=== PATIENT | female | born 1980 | race American Indian/Alaskan Native ===

== ENCOUNTER 2017-08-05 18:07 | Emergency (ER) | payer OTHER ==
[2017-08-05 18:14] VITALS: BP 94/69; PULSE 80; TEMP 98.5; BMI 22.1
--- NOTE | 2017-08-05 18:17 | PDOC ---
Rapid Medical Evaluation Chief Complaint: Vaginal Bleeding Time Seen by Provider: 08/05/17 18:14 Medical Evaluation: Allergies Allergy/AdvReac Type Severity Reaction Status Date / Time No Known Allergies Allergy Verified 04/29/16 03:59 Vital Signs Temp Pulse Resp BP Pulse Ox 98.5 F 80 20 94/69 100 08/05/17 18:12 08/05/17 18:12 08/05/17 18:12 08/05/17 18:12 08/05/17 18:12 08/05/17 18:14 I have performed a brief in-person evaluation of this patient. The patient presents with a chief complaint of: 8 weeks w/ vaginal bleeding today. No clots or abd pain. +IUP w/ FHR on US last week. Beta 106,420 on 07/28. NET DEVELOPER ARCHITECT is Dr Woodard Pertinent physical exam findings:Stable I have ordered the following:labs/US The patient will proceed to the ED for further evaluation. 08/05/17 18:19 Discharge Disposition - Diagnosis First trimester bleeding - Referrals - Patient Instructions - Post Discharge Activity
--- NOTE | 2017-08-05 18:28 | PDOC ---
History of Present Illness - General History Source: Patient Exam Limitations: No Limitations - History of Present Illness Initial Comments: 08/05/17 18:49 The patient is a 36 year old female presenting with her family who is currently 8 weeks , A0, with a significant past medical history of gestational diabetes and hyperthyroidism, who presents to the emergency department complaining of vaginal bleeding, chills and lower back pain. She reports that she started spotting 1 week ago which has subsided. The bleeding began again today, prompting her to come to the ED. She notes that her lower back pain has been consistent with her . She denies any kind of vaginal discharge other than the bleeding. She notes that she recently had an US and her ROLLER PNEUMATIC and everything was withing normal limits, as per patient. The patient denies chest pain, shortness of breath, headache or dizziness. Denies fever, chills, nausea, vomiting, diarrhea and constipation. Denies dysuria, frequency, urgency and hematuria. LMP: 06/12/2017 Allergies: None Past surgical history: None reported Social History: No alcohol, tobacco or drug use reported ROLLER PNEUMATIC: Dr. Woodard <Jorge A Deleon - Last Filed: 08/05/17 20:44> <Jesse Eaton - Last Filed: 08/05/17 20:59> - General Chief Complaint: Vaginal Bleeding Stated Complaint: VAGINAL BLEEDING (8 WKS ) Time Seen by Provider: 08/05/17 18:14 Past History <Jorge A Deleon - Last Filed: 08/05/17 20:44> - Past Medical History Asthma: No Cancer: No Cardiac Disorders: No Diabetes: No HTN: No Seizures: No Thyroid Disease: No - Reproductive History (#): 1 Para: 0 Cervical CA: No Dysfunctional Uterine Bleeding: No Ectopic : No Endometrial CA: No Polycystic Ovaries: No Therapeutic (s) & number: No Spontaneous : 0 - Suicide/Smoking/Psychosocial Hx Smoking History: Never smoked Have you smoked in the past 12 months: No Hx Alcohol Use: No Drug/Substance Use Hx: No Substance Use Type: None Hx Substance Use Treatment: No <Jesse Eaton - Last Filed: 08/05/17 20:59> - Past Medical History Allergies/Adverse Reactions: Allergies Allergy/AdvReac Type Severity Reaction Status Date / Time No Known Allergies Allergy Verified 08/05/17 18:15 Home Medications: Ambulatory Orders Vitamins (Sjr) - 1 tab PO DAILY 05/28/15 Review of Systems - Review of Systems Able to Perform ROS?: Yes Comments:: 08/05/17 18:50 CONSTITUTIONAL: (+) Chills. No fever, no fatigue EYES: No visual changes ENT: No ear pain, no sore throat CARDIOVASCULAR: No chest pain, no palpitations RESPIRATORY: No cough, no SOB GI: No abdominal pain, no nausea, no vomiting, no constipation, no diarrhea GENITOURINARY: (+) Vaginal bleeding. No dysuria, no frequency. MUSKULOSKELETAL: (+) Lower back paim. No myalgias SKIN: No rash NEURO: No headache <Jorge A Deleon - Last Filed: 08/05/17 20:44> *Physical Exam - Vital Signs Last Vital Signs Temp Pulse Resp BP Pulse Ox 98.5 F 80 20 94/69 100 08/05/17 18:12 08/05/17 18:12 08/05/17 18:12 08/05/17 18:12 08/05/17 18:12 - Physical Exam Comments: 08/05/17 18:50 CONSTITUTIONAL: Well-appearing; well-nourished; in no apparent distress HEAD: Normocephalic; atraumatic EYES: PERRL; EOM intact ENMT: External appears normal; normal oropharynx NECK: Supple; non-tender; no cervical lymphadenopathy CARD: Normal S1, S2; no murmurs, rubs, or gallops RESP: Normal chest excursion with respiration; breath sounds clear and equal bilaterally; no wheezes, rhonchi, or rales ABD: Soft, non-distended; non-tender; no palpable organomegaly, no palpable hernias EXT: Normal ROM in all four extremities; non-tender to palpation; distal pulses intact SKIN: Warm, dry, no rash NEURO: No focal neurological deficiencies. PELVIC EXAM: No CMT or adnexal tenderness. Small amount of accumulated blood in the vaginal vault. Ox is closed. (maintenance mechanic technician Kristal Nixon Chaperoned) <Jorge A Deleon - Last Filed: 08/05/17 20:44> - Vital Signs Last Vital Signs Temp Pulse Resp BP Pulse Ox 98.5 F 80 20 94/69 100 08/05/17 18:12 08/05/17 18:12 08/05/17 18:12 08/05/17 18:12 08/05/17 18:12 <Jesse Eaton - Last Filed: 08/05/17 20:59> ED Treatment Course - LABORATORY CBC & Chemistry Diagram: 08/05/17 18:39 <Jorge A Deleon - Last Filed: 08/05/17 20:44> - LABORATORY CBC & Chemistry Diagram: 08/05/17 18:39 <Jesse Eaton - Last Filed: 08/05/17 20:59> Medical Decision Making - Medical Decision Making 08/05/17 20:05 Patient is a 36-year-old female, 3 para 2, at approximately 8 weeks gestation by LMP who presents to the ER with crampy lower abdominal pain and vaginal bleeding. Differential diagnoses includes ectopic versus threatened AB versus incomplete AB. We'll obtain CBC/beta hCG. Patient is Rh- and has received Rhogam one week previously for vaginal spotting add Dr. Woodard' s office. Will obtain pelvic ultrasound. Will reassess. 08/05/17 20:55 pt is resting comfortably. US shows iup at 7w5d with fh. PE reveals no active bleeding, closed cervical os. no rhogam indicated at this time (pt had recieved it previously). case discussed with covering OB. will advice pelvic rest. will d/c with outpt f/u. <Jesse Eaton - Last Filed: 08/05/17 20:59> *DC/Admit/Observation/Transfer - Attestations Scribe Attestion: 08/05/17 18:50 Documentation prepared by Jorge A Deleon, acting as certified medical technician assistant for Jesse Eaton MD <Jorge A Deleon - Last Filed: 08/05/17 20:44> - Attestations Physician Attestion: 08/05/17 20:05 The documentation was prepared by the scribe under my direct supervision. I have reviewed the documentation which correctly represents the findings, medical decision-making and critical action taken by me. <Jesse Eaton - Last Filed: 08/05/17 20:59> Diagnosis at time of Disposition: First trimester bleeding, Threatened - Discharge Dispostion Disposition: HOME Condition at time of disposition: Stable - Referrals Referrals: Juan A Walker MD [Primary Care Provider] - Ramos Woodard MD [Staff Physician] - - Patient Instructions Printed Discharge Instructions: DI for Threatened
[2017-08-05] MEDS ORDERED: SODIUM CHLORIDE 500 ML IV STA (18:30)
[2017-08-05 19:08] LABS: BASO % 0.6 % (0-2.0); EOS % 0.3 % (0-4.5); HEMATOCRIT 37.9 % (32.4-45.2); HEMOGLOBIN 12.6 GM/dL (10.7-15.3); LYMPH % 22.1 % (8-40); MCH 30.5 pg (25.7-33.7); MCHC 33.3 g/dl (32.0-36.0); MEAN CELL VOLUME 91.6 fl (80-96); MONO % 8.1 % (3.8-10.2); NEUT % 68.9 % (42.8-82.8); PLATELET COUNT 195 K/MM3 (134-434); RBC 4.14 M/mm3 (3.60-5.2); RDW 12.7 % (11.6-15.6); WHITE BLOOD COUNT 7.5 K/mm3 (4.0-10.0)
[2017-08-05 19:11] LABS: URINE APPEARANCE SLCLOUDY; URINE BILIRUBIN NEGATIVE (<2.0 mg/dL); URINE COLOR LTYELLOW; URINE GLUCOSE (UA) 1+ (NEGATIVE); URINE KETONE NEGATIVE (NEGATIVE); URINE LEUK ESTERASE TRACE (NEGATIVE); URINE NITRITE NEGATIVE (NEGATIVE); URINE PROTEIN NEGATIVE (NEGATIVE); URINE UROBILINOGEN NEGATIVE mg/dL (0.2-1.0)
[2017-08-05 19:12] LABS: EPI CELLS RARE /HPF (FEW); URINE BACTERIA RARE /hpf (NONE SEEN); URINE MUCUS RARE
== END 2017-08-05 21:19 | disposition home or self-care (01) ==
LOC: JER 18:07
DX: O26.891 Other specified pregnancy related conditions, first trimester (principal); O20.0 Threatened abortion; Z3A.08 8 weeks gestation of pregnancy
CPT/HCPCS: 36415; 76801-TC; 81003; 81015; 84702; 85025; 86850; 86870; 86900; 86901; 86902; 99282-25

== ENCOUNTER 2018-03-18 09:06 | Inpatient (IN) | payer SELFPAY ==
[2018-03-18] MEDS ORDERED: AMPICILLIN SODIUM 2 GM VIAL ONE (09:27)
[2018-03-18] MEDS ORDERED: FENTANYL/BUPIVACAINE/NS/PF - PCEA - 50 ML DISP.SYRIN EP ONE (09:51)
--- NOTE | 2018-03-18 10:12 | HP ---
Past Medical History - Admission History of Present Illness: 37 yo @ 39 6/7 wks by first trimester ultrasound, EDC 03/09/2018 complicated by: 1. Rh negative s/p rhogam 07/28/2017, 12/22/2017 2. Threatened in first trimester s/p rhogam 07/28/17 3. GBS positive, no PCN allergy 4. Short interval 5. Prior GDMA1, normal GTT x3 this 6. Hyperthyroidism - no meds Patient presents with chief complaint of regular painful contractions which began at 0830. Patient reports movement, denies leakage of fluid or vaginal bleeding. Limitations to Obtaining History: No Limitations - Past Medical History Cardiovascular: No: HTN Pulmonary: No: Asthma ...: 3 ...Para: 2 Heme/Onc: No: Anemia Endocrine: Yes: Hyperthyroidism (no meds) - Past Surgical History Hx Myomectomy: No Hx Transabdominal Cerclage: No Additional Surgical History: Cosmetic nose surgery - Smoking History Smoking history: Never smoked Have you smoked in the past 12 months: No - Alcohol/Substance Use Hx Alcohol Use: No - Social History History of Recent Travel: No Home Medications - Allergies Allergies/Adverse Reactions: Allergies Allergy/AdvReac Type Severity Reaction Status Date / Time No Known Allergies Allergy Verified 03/18/18 09:57 - Home Medications Home Medications: Ambulatory Orders Vitamins (Sjr) - 1 tab PO DAILY 05/28/15 Review of Systems - Review of Systems Constitutional: reports: No Symptoms Cardiovascular: reports: No Symptoms Respiratory: reports: No Symptoms Gastrointestinal: reports: No Symptoms Genitourinary: reports: No Symptoms Integumentary: reports: No Symptoms Hematology/Lymphatic: reports: No Symptoms Psychiatric: reports: No Symptoms Physical Exam - Maternity - Abdominal Exam/OB Number of Fetuses: Single Presentation: Vertex Contractions: Yes Regularity: Regular Intensity: Strong Monitor Mode: External Heart Rate (range): 150 Category: I Accelerations: Non-Uniform Decelerations: None - Vaginal Exam/OB Dilatation (cm): 8 Effacement (%): 100 Amniotic Membrane Status: Ruptured (meconium) Amniotic Fluid: Yes: Meconium Stained Presentation: Vertex/Position Station: 0 - Physical Exam Edema: No Psychiatric: Yes: Alert, Oriented Hemorrhage Risk Assessment - Risk Factors Medium Risk Factors: Yes: None High Risk Factors: Yes: None Risk Score: 1 Risk Level: Medium Risk Assessment/Plan 37 yo 39 6/7 wks active labor 1. Admit to L&D 2. Routien labs ordered 3. Consents reviewed and signed 4. GBS positive, PCN 5. Category II FHT - will continue to monitor 6. Will proceed with expectant management
[2018-03-18 10:13] LABS: BASO % 0.4 % (0-2.0); EOS % 0.4 % (0-4.5); HEMATOCRIT 38.6 % (32.4-45.2); HEMOGLOBIN 13.7 GM/dL (10.7-15.3); LYMPH % 28.7 % (8-40); MCH 32.7 pg (25.7-33.7); MCHC 35.4 g/dl (32.0-36.0); MEAN CELL VOLUME 92.4 fl (80-96); MEAN PLT VOLUME 9.2 fl (7.5-11.1); MONO % 6.4 % (3.8-10.2); NEUT % 64.1 % (42.8-82.8); PLATELET COUNT 125 K/MM3 (134-434); RBC 4.18 M/mm3 (3.60-5.2); RDW 14.1 % (11.6-15.6); WHITE BLOOD COUNT 8.2 K/mm3 (4.0-10.0)
[2018-03-18 10:24] LABS: INR 0.9 (0.83-1.09); PROTHROMBIN TIME (PATIENT) 10.6 SEC (9.7-13.0)
[2018-03-18 10:26] LABS: ACTIVATED PTT 29.2 SECONDS (25.2-36.5)
[2018-03-18 11:02] LABS: ANION GAP 9 MMOL/L (8-16); BLOOD UREA NITROGEN 13 mg/dL (7-18); CALCIUM 8.2 mg/dL (8.5-10.1); CHLORIDE 107 mmol/L (98-107); CO2 23 mmol/L (21-32); CREATININE 0.7 mg/dL (0.55-1.3); GLUCOSE,RANDOM 97 mg/dL (74-106); POTASSIUM 3.9 mmol/L (3.5-5.1); SODIUM 139 mmol/L (136-145)
[2018-03-18 11:05] VITALS: BMI 27.4
[2018-03-18] MEDS ORDERED: OXYTOCIN 20 UNITS in 0.9% NS 20 UNIT/1,000 ML INFUS.BAG IV ONE (11:14)
--- NOTE | 2018-03-18 11:52 | PN ---
Delivery - Delivery Vaginal Delivery: No Problems Type of Anesthesia: Spinal Episiotomy/Laceration: Midline, 2nd degree EBL (cc): 300 Delivery, Single - Stages of Labor Date 1st Stage Initiatied: 03/18/18 Time 1st Stage Initiated: 08:00 Date 2nd Stage Initiated: 03/18/18 Time 2nd Stage Initiated: 11:14 Date of Delivery: 03/18/18 Time of Delivery: 11:24 Date Placenta Delivered: 03/18/18 Time Placenta Delivered: 11:40 Placenta: Yes: Spontaneous - Condition of Gender: Female Position: Right, OA Total Hours ROM (Hrs/Mins): 1 hour 10 minutes - 5 Minutes Total Score: 9 - Feeding Plan Initial Plan: Exclusive throughout hospitalization Remarks - Remarks Remarks: Patient progressed to fully dilated and at 1124via delivered a viable female infant in SYLVIA position, APGARs 9,9. Weight and length unknown at this time. Head delivered spontaneously followed by shoulders and body without difficulty. Infant with spontaneous cry and placed on mother's abdomen. Nose and mouth was bulb suctioned. Cord was clamped and cut. Perineum and vagina examined, a second degreelaceration was noted and repaired in the usual fashion. Rectal exam revealed no sutures in rectum. Placenta was delivered spontaneously and intact. 20 units of pitocin in 1 L IVF was given. All counts correct x 2. Mother and infant stable in LDR. EBL 300cc.
[2018-03-18] MEDS ORDERED: BENZOCAINE 28 GM HEMORRHOIDAL OINTMENT TP PRN (11:53)
[2018-03-18] MEDS ORDERED: METHYLERGONOVINE MALEATE 0.2 MG/1 ML AMP IM PRN (11:53)
[2018-03-18] MEDS ORDERED: BENZOCAINE 20% 57 GM BOTTLE TP PRN (11:53)
[2018-03-18] MEDS ORDERED: BISACODYL 10 MG SUPP.RECT RC PRN (11:53)
[2018-03-18] MEDS ORDERED: WITCH HAZEL 50% (TUCKS) 40 PAD/JAR PAD TP PRN (11:53)
[2018-03-18] MEDS ORDERED: ELECTROLYTE-148 SOLN 500 ML IV ONE (11:54)
[2018-03-18] MEDS ORDERED: AMPICILLIN - 2 GM in SODIUM CHLORIDE 100 ML IVPB ONE (11:54)
[2018-03-18] MEDS ORDERED: ELECTROLYTE-148 SOLN 1,000 ML IV SCH (12:00)
[2018-03-18] MEDS ORDERED: OXYTOCIN 20 UNITS in 0.9% NS 20 UNIT/1,000 ML INFUS.BAG IV SCH (12:00)
[2018-03-18] MEDS: FERROUS SO4 325 MG TABLET (FP) PO SCH ×2 (12:07→18:14)
[2018-03-18] MEDS: IBUPROFEN 600 MG TABLET (FP) PO PRN (20:42)
[2018-03-18] MEDS: RANITIDINE HCL 150 MG TABLET (FP) PO SCH ×2 (20:43→22:32)
[2018-03-18] MEDS: ACETAMINOPHEN 325 MG TABLET (FP) PO PRN (20:43)
[2018-03-19 08:07] LABS: BASO % 0.4 % (0-2.0); EOS % 0.3 % (0-4.5); HEMATOCRIT 32.8 % (32.4-45.2); LYMPH % 23.3 % (8-40); MCH 31.3 pg (25.7-33.7); MCHC 33.7 g/dl (32.0-36.0); MEAN CELL VOLUME 92.9 fl (80-96); MEAN PLT VOLUME 8.7 fl (7.5-11.1); MONO % 5.3 % (3.8-10.2); NEUT % 70.7 % (42.8-82.8); PLATELET COUNT 116 K/MM3 (134-434); RBC 3.53 M/mm3 (3.60-5.2); RDW 13.8 % (11.6-15.6); WHITE BLOOD COUNT 9.3 K/mm3 (4.0-10.0)
[2018-03-19] MEDS: FERROUS SO4 325 MG TABLET (FP) PO SCH ×3 (08:23→17:09)
[2018-03-19] MEDS: IBUPROFEN 600 MG TABLET (FP) PO PRN ×2 (08:27→14:24)
[2018-03-19] MEDS: ACETAMINOPHEN 325 MG TABLET (FP) PO PRN ×2 (08:28→14:25)
[2018-03-19] MEDS: PRENATAL VITAMINS W/ FOLIC ACID TABLET (FP) PO SCH (09:16)
[2018-03-19] MEDS: RANITIDINE HCL 150 MG TABLET (FP) PO SCH ×2 (09:22→22:46)
[2018-03-19] MEDS ORDERED: FLU VACCINE QUAD 60 MCG/0.5 ML (MDV 18-19) IM ONE (10:00)
[2018-03-19] MEDS ORDERED: DIPHTH,PERTUSS(ACELL),TET 0.5 ML DISP.SYRIN IM ONE (10:00)
[2018-03-19] MEDS ORDERED: SENNOSIDES/DOCUSATE COMBO (SENNA PLUS) TABLET (UD) PO PRN (22:00)
[2018-03-20] MEDS: ACETAMINOPHEN 325 MG TABLET (FP) PO PRN ×2 (01:48→08:18)
[2018-03-20] MEDS: IBUPROFEN 600 MG TABLET (FP) PO PRN ×2 (01:49→08:18)
[2018-03-20] MEDS: FERROUS SO4 325 MG TABLET (FP) PO SCH ×2 (08:18→11:56)
[2018-03-20 08:52] VITALS: BP 131/78; PULSE 68; TEMP 97.4
[2018-03-20] MEDS: PRENATAL VITAMINS W/ FOLIC ACID TABLET (FP) PO SCH (09:25)
[2018-03-20] MEDS: RANITIDINE HCL 150 MG TABLET (FP) PO SCH (09:25)
--- NOTE | 2018-03-20 11:36 | PN ---
Post Progress Note Type of Delivery: Vital Signs: Vital Signs Temperature 97.4 F L 03/20/18 08:50 Pulse Rate 68 03/20/18 08:50 Respiratory Rate 20 03/20/18 08:50 Blood Pressure 131/78 03/20/18 08:50 O2 Sat by Pulse Oximetry (%) - Labs Labs: CBC WBC 9.3 K/mm3 (4.0-10.0) 03/19/18 07:00 RBC 3.53 M/mm3 (3.60-5.2) L 03/19/18 07:00 Hgb 11.0 GM/dL (10.7-15.3) 03/19/18 07:00 Hct 32.8 % (32.4-45.2) D 03/19/18 07:00 MCV 92.9 fl (80-96) 03/19/18 07:00 MCH 31.3 pg (25.7-33.7) 03/19/18 07:00 MCHC 33.7 g/dl (32.0-36.0) 03/19/18 07:00 RDW 13.8 % (11.6-15.6) 03/19/18 07:00 Plt Count 116 K/MM3 (134-434) L 03/19/18 07:00 MPV 8.7 fl (7.5-11.1) 03/19/18 07:00 Absolute Neuts (auto) 6.6 K/mm3 (1.5-8.0) 03/19/18 07:00 Neutrophils % 70.7 % (42.8-82.8) 03/19/18 07:00 Lymphocytes % 23.3 % (8-40) 03/19/18 07:00 Monocytes % 5.3 % (3.8-10.2) 03/19/18 07:00 Eosinophils % 0.3 % (0-4.5) 03/19/18 07:00 Basophils % 0.4 % (0-2.0) 03/19/18 07:00 Nucleated RBC % 0 % (0-0) 03/19/18 07:00
--- NOTE | 2018-03-20 11:37 | DS ---
Physical Exam-EVENT MANAGEMENT CONSULTANT Vital Signs: Vital Signs Temperature 97.4 F L 03/20/18 08:50 Pulse Rate 68 03/20/18 08:50 Respiratory Rate 20 03/20/18 08:50 Blood Pressure 131/78 03/20/18 08:50 O2 Sat by Pulse Oximetry (%) Labs: CBC, BMP 03/19/18 07:00 03/18/18 09:26 Delivery - Delivery Vaginal Delivery: No Problems Type of Anesthesia: Spinal Episiotomy/Laceration: Midline, Perineal Extension/lac, 2nd degree EBL (cc): 300 Delivery, Single - Stages of Labor Date 1st Stage Initiatied: 03/18/18 Time 1st Stage Initiated: 08:00 Date 2nd Stage Initiated: 03/18/18 Time 2nd Stage Initiated: 11:14 Date of Delivery: 03/18/18 Time of Delivery: 11:24 Time Placenta Delivered: 11:40 Placenta: Yes: Spontaneous - Condition of Insurance Salesman/Quality Assurance Supervisor Trim Present: Yes Name: Jeaneth Del Angel Gender: Female Weight: 7 lb 10 oz Position: Right, OA Total Hours ROM (Hrs/Mins): 1 hour 10 minutes - 5 Minutes Total Score: 9 1 Minute Total Score: 9 - Feeding Plan Initial Plan: Exclusive throughout hospitalization Discharge Summary Reason For Visit: LABOR ADMISSION - Instructions Diet, Activity, Other Instructions: return to office in 4-6 weeks. call for appointment. Referrals: Kayla Campuzano MD [Staff Physician] - - Home Medications Comprehensive Discharge Medication List: Ambulatory Orders Vitamins (Sjr) - 1 tab PO DAILY 05/28/15
== END 2018-03-20 14:30 | disposition home or self-care (01) | DRG 807 ==
LOC: JLDR 09:06 → J3W 14:00
PROVIDERS: ADMIT Obstetrics & Gynecology; ATTEND Obstetrics & Gynecology
PROC: 10E0XZZ Delivery of Products of Conception, External Approach (ICD-10-PCS; principal; 2018-03-18)
PROC: 0KQM0ZZ Repair Perineum Muscle, Open Approach (ICD-10-PCS; 2018-03-18)
DX: O70.1 Second degree perineal laceration during delivery (principal); Z37.0 Single live birth; O99.284 Endocrine, nutritional and metabolic diseases complicating childbirth; E05.80 Other thyrotoxicosis without thyrotoxic crisis or storm; O99.824 Streptococcus B carrier state complicating childbirth; Z3A.39 39 weeks gestation of pregnancy
CPT/HCPCS: 36415; 59409; 71046-TC-FY; 80048; 85025; 85461; 85610; 85730; 86593; 86850; 86900; 86901; 86999; 90686; 90715; G0008

== ENCOUNTER 2021-05-17 11:12 | Emergency (ER) | payer BC ==
[2021-05-17 11:23] VITALS: BP 90/62; PULSE 65; TEMP 98.2; BMI 23.4
[2021-05-17 12:44] LABS: BASO % 0.9 % (0-2.0); EOS % 0.4 % (0-4.5); HEMATOCRIT 40.2 % (32.4-45.2); HEMOGLOBIN 13.1 GM/dL (10.7-15.3); MCH 29.2 pg (25.7-33.7); MCHC 32.6 g/dl (32.0-36.0); MEAN CELL VOLUME 89.7 fl (80-96); MEAN PLT VOLUME 8.2 fl (7.5-11.1); MONO % 8.7 % (3.8-10.2); PLATELET COUNT 175 10^3/uL (134-434); RBC 4.49 M/mm3 (3.60-5.2); RDW 13.9 % (11.6-15.6); WHITE BLOOD COUNT 5.2 K/mm3 (4.0-10.0)
[2021-05-17] MEDS ORDERED: ACETAMINOPHEN 325 MG TABLET (FP) PO ONE (12:52)
[2021-05-17] MEDS ORDERED: ACETAMINOPHEN 325 MG TABLET (FP) ONE (13:07)
[2021-05-17 13:09] LABS: BLOOD UREA NITROGEN 10.1 mg/dL (7-18); CALCIUM 8.9 mg/dL (8.5-10.1)
[2021-05-17 13:12] LABS: CREATININE 0.7 mg/dL (0.55-1.3)
[2021-05-17 13:14] LABS: BILIRUBIN,TOTAL 0.7 mg/dL (0.2-1); TOT PROT 6.8 g/dl (6.4-8.2)
== END 2021-05-17 15:03 | disposition home or self-care (01) ==
LOC: JER 11:12
DX: R07.89 Other chest pain (principal)
CPT/HCPCS: 36415; 71046-TC-FY; 80053; 82550; 84484; 84703; 85025; 93005; 93010; 99284-25

== ENCOUNTER 2023-03-25 12:59 | Emergency (ER) | payer BC ==
[2023-03-25 13:25] VITALS: RESP 18; TEMP 98.3; BMI 22.8
[2023-03-25] MEDS ORDERED: VANCOMYCIN/WATER 1250 MG 1,250 MG/250 ML BAG IVPB ONE ×2 (15:36→16:38)
[2023-03-25] MEDS ORDERED: KETOROLAC TROMETHAMINE 30 MG/1 ML VIAL IM ONE (16:44)
[2023-03-25] MEDS ORDERED: KETOROLAC TROMETHAMINE 30 MG/1 ML VIAL ONE (17:05)
[2023-03-25 17:23] LABS: BASO % 0.3 % (0-2.0); EOS % 0.2 % (0-4.5); HEMATOCRIT 42.1 % (32.4-45.2); HEMOGLOBIN 13.7 GM/dL (10.7-15.3); LYMPH % 14.8 % (8-40); MCH 28.6 pg (25.7-33.7); MCHC 32.5 g/dl (32.0-36.0); MEAN PLT VOLUME 7.6 fl (7.5-11.1); MONO % 5.7 % (3.8-10.2); PLATELET COUNT 298 10^3/uL (134-434); RBC 4.79 M/mm3 (3.60-5.2); RDW 13.6 % (11.6-15.6); WHITE BLOOD COUNT 9.3 K/mm3 (4.0-10.0)
[2023-03-25 18:08] LABS: ALBUMIN 3.9 g/dl (3.4-5.0); BLOOD UREA NITROGEN 9.6 mg/dL (7-18); CALCIUM 9.2 mg/dL (8.5-10.1)
[2023-03-25 18:11] LABS: CREATININE 0.5 mg/dL (0.55-1.3)
[2023-03-25 18:13] LABS: BILIRUBIN,TOTAL 0.3 mg/dL (0.2-1); TOT PROT 7.8 g/dl (6.4-8.2)
[2023-03-25 18:22] LABS: ERYTHROCYTE SEDIMENTATION RATE 46 mm/hr (0-20)
[2023-03-25 21:01] VITALS: BP 104/46; PULSE 78
== END 2023-03-25 23:19 | disposition short-term general hospital (02) ==
LOC: JER 12:59
PROC: 3E03329 Introduction of Other Anti-infective into Peripheral Vein, Percutaneous Approach (ICD-10-PCS; principal; 2023-03-25)
PROC: 3E0333Z Introduction of Anti-inflammatory into Peripheral Vein, Percutaneous Approach (ICD-10-PCS; 2023-03-25)
DX: J34.89 Other specified disorders of nose and nasal sinuses (principal); R68.83 Chills (without fever)
CPT/HCPCS: 36415; 70486-TC; 80053; 85025; 85651; 86140; 87040; 99285-25